=== PATIENT | male | born 1995 | race African-American/Black ===

== ENCOUNTER 2017-01-29 01:30 | Emergency (ER) | payer MEDICAID, OTHER ==
[~2017-01-29] VITALS: Ht 190.5 cm; Wt 94.6 kg
[2017-01-29 01:32] VITALS: BP 134/69; PULSE 90; RESP 20; TEMP 99.7; O2SAT 100
[2017-01-29 01:38] VITALS: BP 128/65; PULSE 84; RESP 18; TEMP 99.2; O2SAT 100
[2017-01-29 02:10] VITALS: BP 128/65; PULSE 84; RESP 18; TEMP 99.2; O2SAT 100
--- NOTE | 2017-01-29 03:21 | RADRPT ---
EXAM DATE/TIME: 01/29/2017 02:55 [place] COMPARISON: No previous studies available for comparison. INDICATIONS : Right medial knee pain after playing football yesterday. MEDICAL HISTORY : None. SURGICAL HISTORY : None. ENCOUNTER: Initial ACUITY: 1 day PAIN SCORE: 8/10 LOCATION: Right knee FINDINGS: Four view examination of the right knee demonstrates no evidence of fracture or dislocation. Bony mi neralization is normal. The articular surfaces are intact. The suprapatellar soft tissues have a no rmal configuration. CONCLUSION: No acute disease. Cezar Jon MD on January 29, 2017 at 3:20 Board Certified Radiologist. This report was verified electronically.
[2017-01-29] MEDS ORDERED: oxyCODONE/ACETAMINOPHEN 5 MG/325 MG TAB PO ONE (03:45)
[2017-01-29] MEDS ORDERED: HYDR-3516 PO (03:50)
--- NOTE | 2017-01-29 03:50 | PD ---
HPI Chief Complaint: Injury Time Seen by Provider: 02:35 Travel History International Travel<30 days: No Contact w/Intl Traveler<30days: No Traveled to known affect area: No History of Present Illness HPI 21 yo M complains of R knee pain constant moderate to severe worse with rom after hyperextension type injury approximately 6 hours prior while the patient was playing basketball. no additional complaint. no numbness tingling weakness. otc analgesia marginally helpful. PFSH Past Medical History Medical History: Denies Significant Hx Diminished Hearing: No Immunizations Current: Yes Tetanus Vaccination: Unknown Influenza Vaccination: No Past Surgical History Surgical History: No Previous Surgery Social History Alcohol Use: No Tobacco Use: No Substance Use: No Allergies-Medications (Allergen,Severity, Reaction): Coded Allergies: No Known Allergies (Verified Adverse Reaction, Unknown, 01/29/17) Reported Meds & Prescriptions Reported Meds & Active Scripts Active Hydrocodone-Acetaminophen 5-325 mg Tab 1 Tab PO Q6H PRN Review of Systems General / Constitutional: No: Fever Neurologic: No: Weakness Physical Exam Narrative GENERAL: 21 yo M wnwd no acute distress SKIN: Warm and dry. HEAD: Normocephalic. EYES: No scleral icterus. No injection or drainage. NECK: Supple, trachea midline. No JVD or lymphadenopathy. CARDIOVASCULAR: Regular rate and rhythm without murmurs, gallops, or rubs. RESPIRATORY: Breath sounds equal bilaterally. No accessory muscle use. GASTROINTESTINAL: Abdomen soft, non-tender, nondistended. MUSCULOSKELETAL: No cyanosis, or edema. TTP right knee along the medial femoral condyle and diffusely. no balottment of patella. BACK: Nontender without obvious deformity. No CVA tenderness. Data Data Last Documented VS Vital Signs Date Time Temp Pulse Resp B/P (MAP) Pulse Ox O2 Delivery O2 Flow Rate FiO2 01/29/17 04:08 82 16 132/68 (89) 100 01/29/17 02:14 Room Air 01/29/17 02:10 99.2 vs reivwed Orders Orders Knee, Complete (4vws) (01/29/17 ) ^ Knee Immobilizer (01/29/17 03:32) Oxycodone-Acetamin 5-325 Mg (Percocet (01/29/17 03:45) Crutches (01/29/17 ) Ed Discharge Order (01/29/17 03:50) MDM Medical Decision Making Medical Screen Exam Complete: Yes Emergency Medical Condition: Yes Medical Record Reviewed: Yes Differential Diagnosis fracture, internal derangement, contusion, hemarthrosis Narrative Course knee immobilizer, crutches, follow up with ortho Diagnosis Primary Impression: Knee hyperextension injury Qualified Codes: S89.81XA - Other specified injuries of right lower leg, initial encounter Referrals: Fabrizio Bedolla MD 2 days Med/Other Pt SpecificInfo: Prescription(s) given Scripts Hydrocodone-Acetaminophen (Hydrocodone-Acetaminophen) 5-325 mg Tab 1 TAB PO Q6H Y for PAIN SCALE 6 TO 10, #20 TAB 0 Refills Prov: Wei Sands MD 01/29/17 Disposition: 01 DISCHARGE HOME Condition: Stable Wei Sands MD Jan 29, 2017 03:50
[2017-01-29 04:08] VITALS: BP 132/68
== END 2017-01-29 04:20 | disposition home or self-care (01) ==
LOC: PHED 01:30
DX: S89.91XA Unspecified injury of right lower leg, initial encounter (principal); X50.9XXA Other and unspecified overexertion or strenuous movements or postures, initial encounter; Y93.67 Activity, basketball
CPT/HCPCS: 73564; 99283; E0113